=== PATIENT | female | born 1975 | race Caucasian/White ===

== ENCOUNTER → 2016-08-08 | Outpatient (CLI) | payer BC ==
--- NOTE | 2016-08-08 14:28 | REP ---
CERVICAL SPINE SERIES: Eight views. HISTORY: Neck pain. FINDINGS: Lateral views done in flexion/extension and neutral position show preserved vertebral body heights and normal alignment. Disc spaces are maintained. No subluxation or instability is seen. Prevertebral soft tissues are unremarkable. Oblique images demonstrate intact neural foramina bilaterally at each cervical level and normally aligned facets. AP view shows a mild levoconvex curvature, which may reflect spasm. Open mouth odontoid view is unremarkable. IMPRESSION: No bony abnormality is seen. A levoconvex curvature may reflect spasm. Signed by Dax Dominguez MD 08/08/2016 03:06 P
== END ==
LOC: M LRY 13:40
PROVIDERS: ATTEND Nurse Practitioner Family
DX: M54.2 Cervicalgia (principal); R93.7 Abnormal findings on diagnostic imaging of other parts of musculoskeletal system

== ENCOUNTER → 2017-08-21 | Outpatient (REF) | payer BC | LOC: M SFHCLERA 17:54 | DX: R53.81 Other malaise (principal) ==

== ENCOUNTER → 2018-12-24 | Outpatient (REF) | payer BC | LOC: M SFHCLERA 19:57 | PROVIDERS: ATTEND Physician Assistant | DX: J02.9 Acute pharyngitis, unspecified (principal) ==

== ENCOUNTER → 2019-10-19 | Outpatient (REF) | payer BC | LOC: M SFHCWAGY 13:18 | PROVIDERS: ATTEND Nurse Practitioner Women's Health | DX: Z12.4 Encounter for screening for malignant neoplasm of cervix (principal) ==

== ENCOUNTER → 2019-10-29 | Outpatient (CLI) | payer BC ==
--- NOTE | 2019-10-29 16:21 | REP ---
REASON: Metrorrhagia. COMPARISON: Multiple, the latest 01/29/2016, which was normal. Transvesical and transvaginal imaging was obtained. The uterus measures 8.9 x 4.7 x 5.3 cm. The uterine parenchymal echopattern is within normal limits, with the exception of a small 1.4 x 1.2 x 1.3 cm sized mixed echo structure, possibly representing early myomatous change. The endometrial echocomplex is within normal limits for the patient's age, measuring 1.2 cm. Right ovary measures 3.5 x 2 x 3.6 cm and is within normal limits. Left ovary measures 3.4 x 2.1 x 1.8 cm and is within normal limits. There is no free fluid in the cul-de-sac. IMPRESSION: Possible early uterine myomatous changes.
== END ==
LOC: M WHC 09:04
PROVIDERS: ATTEND Nurse Practitioner Women's Health
DX: R10.2 Pelvic and perineal pain (principal); N92.1 Excessive and frequent menstruation with irregular cycle

== ENCOUNTER → 2019-11-12 | Outpatient (CLI) | payer BC ==
--- NOTE | 2019-11-12 08:49 | REPMRS ---
Patient History The patient states she has not had a clinical breast exam in over a year. No known family history of cancer. Digital Woman Screen Mammo: November 12, 2019 - Exam #: [id number] Bilateral CC and MLO view(s) were taken. Technologist: Breonna Thorne, Technologist No prior studies available for comparison. FINDINGS: There are scattered fibroglandular densities. The Volpara volumetric breast density category is: B. There is no evidence of dominant mass, architectural distortion, or grouped microcalcification typical of malignancy. 3-D tomosynthesis shows no additional findings. Assessment: BI-RADS/ACR category 1 mammogram. Negative Mammogram. Recommendation Routine screening mammogram of both breasts in 1 year (for women over age 40). This patient's Lifetime Breast Cancer RIsk is estimated at 9.4 %. This mammogram was interpreted with the aid of an FDA-approved computer-aided dectection system. Electronically Signed By: Nicolas Dominguez MD 11/12/19 0867
== END ==
LOC: M WHC 08:05
PROVIDERS: ATTEND Nurse Practitioner Women's Health
DX: Z12.31 Encounter for screening mammogram for malignant neoplasm of breast (principal)

== ENCOUNTER → 2020-08-09 | Outpatient (REF) | payer BC ==
[2020-08-09 17:14] LABS: BASO % 0.3 % (0.0-1.0); EOS # 0.4 10^3/uL (0.0-0.5); EOS % 4.7 % (0.0-3.0); HEMATOCRIT 41.5 % (36.0-47.0); HEMOGLOBIN 13.3 g/dl (12.0-15.5); LYMPH # 2.2 10^3/uL (1.5-5.0); LYMPH % 29.1 % (24.0-44.0); MEAN CORPUSCULAR HEMOGLOBIN 32.9 pg (27.0-33.0); MEAN CORPUSCULAR VOLUME 102.7 fl (80.0-96.0); MONO # 0.5 10^3/uL (0.0-0.8); MONO % 6.9 % (0.0-5.0); NEUTROPHILS # 4.4 10^3/uL (1.5-8.5); NEUTROPHILS % 58.6 % (36.0-66.0); PLATELET COUNT, AUTOMATED 195 10^3/uL (150-450); RED BLOOD COUNT 4.04 10^6/uL (4.00-5.40); WHITE BLOOD COUNT 7.5 10^3/uL (4.0-10.0)
[2020-08-09 17:30] LABS: ALT/SGPT 24 U/L (12-78); BILIRUBIN,TOTAL 0.2 MG/DL (0.2-1.0); BLOOD UREA NITROGEN 16 MG/DL (7-18); CALCIUM LEVEL 9.4 MG/DL (8.5-10.1); CARBON DIOXIDE LEVEL 28 MEQ/L (21-32); CHLORIDE LEVEL 106 MEQ/L (98-107); FREE T4 1.06 NG/DL (0.76-1.46); GLOMERULAR FILTRATION RATE > 60.0 (>58); GLUCOSE, FASTING 88 MG/DL (70-100); POTASSIUM SERUM 4.3 MEQ/L (3.5-5.1); SODIUM LEVEL 140 MEQ/L (136-145); THYROID STIMULATING HORMONE 0.741 uIU/ML (0.358-3.740); TOTAL PROTEIN 6.4 GM/DL (6.4-8.2)
[2020-08-09 18:26] LABS: TOTAL 25(OH) VITAMIN D 19.3 NG/ML (30.0-100.0)
== END ==
LOC: M SFHCPLAZ 15:20
PROVIDERS: ATTEND Nurse Practitioner Family
DX: R59.0 Localized enlarged lymph nodes (principal); F41.9 Anxiety disorder, unspecified

== ENCOUNTER 2020-10-23 06:51 | Emergency (ER) | payer BC ==
[~2020-10-23] VITALS: Ht 167.6 cm; Wt 86.9 kg
[2020-10-23] MEDS ORDERED: LEXA1TAB (07:06)
[2020-10-23] MEDS ORDERED: VITA50005 (07:06)
[2020-10-23 07:51] LABS: BASO # 0.1 10^3/uL (0.0-0.2); BASO % 0.4 % (0.0-1.0); EOS # 0.4 10^3/uL (0.0-0.5); EOS % 3.4 % (0.0-3.0); HEMATOCRIT 46.5 % (36.0-47.0); HEMOGLOBIN 15.1 g/dl (12.0-15.5); LYMPH # 1.6 10^3/uL (1.5-5.0); LYMPH % 13.4 % (24.0-44.0); MEAN CORPUSCULAR HEMOGLOBIN 33.2 pg (27.0-33.0); MEAN CORPUSCULAR HGB CONC 32.5 g/dl (32.0-36.5); MEAN CORPUSCULAR VOLUME 102.2 fl (80.0-96.0); MONO # 0.8 10^3/uL (0.0-0.8); MONO % 6.7 % (2.0-8.0); NEUTROPHILS % 75.6 % (36.0-66.0); PLATELET COUNT, AUTOMATED 191 10^3/uL (150-450); RED BLOOD COUNT 4.55 10^6/uL (4.00-5.40); WHITE BLOOD COUNT 11.9 10^3/uL (4.0-10.0)
[2020-10-23 08:21] LABS: HCG, SERUM QUALITATIVE NEGATIVE (NEGATIVE)
[2020-10-23 08:31] LABS: BLOOD UREA NITROGEN 18 MG/DL (7-18); CALCIUM LEVEL 9.2 MG/DL (8.5-10.1); CARBON DIOXIDE LEVEL 25 MEQ/L (21-32); CHLORIDE LEVEL 109 MEQ/L (98-107); CK-MB VALUE MASS 1.1 NG/ML (<3.6); CPK CREATINE PHOSPHOKINASE 79 U/L (26-192); CREATININE FOR GFR 0.87 MG/DL (0.55-1.30); GLOMERULAR FILTRATION RATE > 60.0 (>58); GLUCOSE, FASTING 82 MG/DL (70-100); MB/CK RELATIVE INDEX 1.39 (< OR =4); POTASSIUM SERUM 4.2 MEQ/L (3.5-5.1); SODIUM LEVEL 141 MEQ/L (136-145); TROPONIN I < 0.02 NG/ML (< 0.10)
--- NOTE | 2020-10-23 08:43 | REP ---
INDICATION: near-syncope. COMPARISON: None. TECHNIQUE: Axial CT images with multiplanar reformations. FINDINGS: No acute bleed or acute large vessel territorial infarct. Ventricles, cisterns and sulci are within normal limits. No mass effect or midline shift. No abnormal fluid collections. Paranasal sinuses and mastoid air cells are clear IMPRESSION: No acute findings. <Electronically signed by Galindo Schmidt > 10/23/20 [id number]
--- NOTE | 2020-10-23 09:39 | ECGEPIP ---
[facility] - ED Test Date: 2020-10-23 Pat Name: ADRIANO BYRNE Department: Room: - Gender: Female Machine Riveter: thomas : 1975 Requested By: Renan Zhang Order Number: [id number] Reading MD: Eric Velazquez Measurements Intervals [place] Rate: 71 P: 30 [place]: 128 QRS: 16 QRSD: 84 T: 21 QT: 402 QTc: 436 Interpretive Statements Normal sinus rhythm Baseline artifact Leads III/aVF isoelectric, uninterpretable Comparison tracing not on file Electronically Signed on 10-23-2020 9:38:51 EDT by Eric Velazquez
[2020-10-23 12:19] LABS: CPK CREATINE PHOSPHOKINASE 71 U/L (26-192); MB/CK RELATIVE INDEX 1.41 (< OR =4); TROPONIN I < 0.02 NG/ML (< 0.10)
[2020-10-23 13:47] VITALS: BP 121/88
--- NOTE | 2020-10-23 15:30 | ECGEPIP ---
[facility] - ED Test Date: 2020-10-23 Pat Name: ADRIANO BYRNE Department: Room: - Gender: Female Special Education Educational Assistant: FLOWER : 1975 Requested By: Renan Zhang Order Number: [id number] Reading MD: Eric Velazquez Measurements Intervals [place] Rate: 71 P: 20 [place]: 134 QRS: 36 QRSD: 74 T: 22 QT: 422 QTc: 458 Interpretive Statements Sinus rhythm with premature ventricular complexes ectopy new from tracing done 719 on same date baseline artifact Electronically Signed on 10-23-2020 15:30:29 EDT by Eric Velazquez
== END 2020-10-23 13:50 | disposition home or self-care (01) ==
LOC: M ED 06:51
DX: R55 Syncope and collapse (principal); F32.9 Major depressive disorder, single episode, unspecified; F41.9 Anxiety disorder, unspecified; K21.9 Gastro-esophageal reflux disease without esophagitis; F17.200 Nicotine dependence, unspecified, uncomplicated

== ENCOUNTER → 2021-02-20 | Outpatient (CLI) | payer BC ==
[~2021-02-20] MED LIST: ERGO500029; LEXA1TAB
== END ==
LOC: M PLALAB 14:17
PROVIDERS: ATTEND Nurse Practitioner Family
DX: E55.9 Vitamin D deficiency, unspecified (principal)

== ENCOUNTER → 2021-04-09 | Outpatient (REF) | LOC: M EMP 12:43 | PROVIDERS: ATTEND Family Medicine | DX: Z20.822 Contact with and (suspected) exposure to COVID-19 (principal) ==

== ENCOUNTER → 2021-04-11 | Outpatient (REF) ==
[2021-04-11 10:36] LABS: RSV AMPLIFICATION NEGATIVE (NEGATIVE)
== END ==
LOC: M EMP 09:32
PROVIDERS: ATTEND Family Medicine
DX: Z11.52 Encounter for screening for COVID-19 (principal)

== ENCOUNTER → 2021-04-23 | Outpatient (CLI) | payer BC ==
[2021-04-24 17:09] LABS: Lyme Disease IgG/IgM Antibodie <0.91 ISR (0.00-0.90); Lyme Disease IgM Ab Quantitati <0.80 index (0.00-0.79)
== END ==
LOC: M PLALAB 07:59
PROVIDERS: ATTEND Nurse Practitioner Family
DX: E55.9 Vitamin D deficiency, unspecified (principal); S20.461D Insect bite (nonvenomous) of right back wall of thorax, subsequent encounter; W57.XXXD Bitten or stung by nonvenomous insect and other nonvenomous arthropods, subsequent encounter; Y92.9 Unspecified place or not applicable; Y99.9 Unspecified external cause status; Y93.9 Activity, unspecified

== ENCOUNTER → 2022-05-09 | Outpatient (CLI) | payer BC ==
[2022-05-09 18:34] LABS: ALBUMIN 3.7 GM/DL (3.2-5.2); ALT/SGPT 20 U/L (12-78); BILIRUBIN,TOTAL 0.3 MG/DL (0.2-1.0); BLOOD UREA NITROGEN 8 MG/DL (7-18); CALCIUM LEVEL 8.6 MG/DL (8.5-10.1); CARBON DIOXIDE LEVEL 25 MEQ/L (21-32); CHLORIDE LEVEL 108 MEQ/L (98-107); CREATININE FOR GFR 0.77 MG/DL (0.55-1.30); GLOMERULAR FILTRATION RATE > 60.0 (>58); GLUCOSE, FASTING 74 MG/DL (70-100); POTASSIUM SERUM 4.3 MEQ/L (3.5-5.1); SODIUM LEVEL 140 MEQ/L (136-145); TOTAL PROTEIN 6.3 GM/DL (6.4-8.2)
[2022-05-09 19:46] LABS: TOTAL 25(OH) VITAMIN D 28.5 NG/ML (30.0-100.0)
== END ==
LOC: M PLALAB 15:04
PROVIDERS: ATTEND Nurse Practitioner Adult Health
DX: F17.210 Nicotine dependence, cigarettes, uncomplicated (principal); E55.9 Vitamin D deficiency, unspecified; Z13.29 Encounter for screening for other suspected endocrine disorder; S20.461D Insect bite (nonvenomous) of right back wall of thorax, subsequent encounter

== ENCOUNTER → 2022-08-11 | Outpatient (REF) | LOC: M LABSMTC 11:22 | PROVIDERS: ATTEND Family Medicine | DX: Z11.52 Encounter for screening for COVID-19 (principal) ==

== ENCOUNTER → 2022-09-23 | Outpatient (REF) | payer BC | LOC: M LAB REF 18:53 | PROVIDERS: ATTEND Student in an Organized Health Care Education/Training Program | DX: J02.9 Acute pharyngitis, unspecified (principal) ==

== ENCOUNTER → 2022-11-25 | Outpatient (REF) | LOC: M EMP 14:31 | PROVIDERS: ATTEND Family Medicine | DX: Z20.828 Contact with and (suspected) exposure to other viral communicable diseases (principal) ==

== ENCOUNTER → 2022-11-27 | Outpatient (REF) | LOC: M EMP 08:34 | PROVIDERS: ATTEND Family Medicine | DX: Z20.828 Contact with and (suspected) exposure to other viral communicable diseases (principal) ==

== ENCOUNTER → 2023-04-14 | Outpatient (CLI) | payer BC ==
[2023-04-14 13:35] LABS: HEMATOCRIT 43.9 % (36.0-47.0); HEMOGLOBIN 14.6 g/dl (12.0-15.5); MEAN CORPUSCULAR HGB CONC 33.3 g/dl (32.0-36.5); MEAN CORPUSCULAR VOLUME 99.1 fl (80.0-96.0); PLATELET COUNT, AUTOMATED 233 10^3/uL (150-450); RED BLOOD COUNT 4.43 10^6/uL (4.00-5.40); WHITE BLOOD COUNT 8.3 10^3/uL (4.0-10.0)
[2023-04-14 13:56] LABS: FERRITIN 9.2 NG/ML (7.3-270.7); THYROID STIMULATING HORMONE 1.284 uIU/ML (0.55-4.78); TOTAL 25(OH) VITAMIN D 25.7 NG/ML (20.0-100.0)
[2023-04-14 14:04] LABS: ALBUMIN 3.7 G/DL (3.2-5.2); ALKALINE PHOSPHATASE 83 U/L (46-116); ALT/SGPT 20 U/L (7.0-40); AST/SGOT 14 U/L (<34); BILIRUBIN,TOTAL 0.3 MG/DL (0.3-1.2); BLOOD UREA NITROGEN 12 MG/DL (9-23); CALCIUM LEVEL 9.2 MG/DL (8.5-10.1); CARBON DIOXIDE LEVEL 24 MMOL/L (20-31); CHLORIDE LEVEL 110 MMOL/L (98-107); CHOLESTEROL LEVEL 199 MG/DL (<200); CHOLESTEROL RISK RATIO 4.14 (<5); CREATININE FOR GFR 0.77 MG/DL (0.55-1.30); GLOMERULAR FILTRATION RATE > 60.0 (>58); GLUCOSE, FASTING 75 MG/DL (60-100); POTASSIUM SERUM 4.7 MMOL/L (3.5-5.1); SODIUM LEVEL 139 MMOL/L (136-145); TOTAL PROTEIN 6.3 G/DL (5.7-8.2); TRIGLYCERIDES LEVEL 125 MG/DL (<150)
== END ==
LOC: M PLALAB 09:52
PROVIDERS: ATTEND Nurse Practitioner Adult Health
DX: Z00.00 Encounter for general adult medical examination without abnormal findings (principal); E55.9 Vitamin D deficiency, unspecified; Z13.220 Encounter for screening for lipoid disorders; N92.6 Irregular menstruation, unspecified

== ENCOUNTER → 2023-08-20 | Outpatient (CLI) | payer BC | LOC: M WHC 13:06 | PROVIDERS: ATTEND Nurse Practitioner Family | DX: Z12.31 Encounter for screening mammogram for malignant neoplasm of breast (principal); R92.323 Mammographic fibroglandular density, bilateral breasts ==

== ENCOUNTER → 2023-08-20 | Outpatient (REF) | payer BC | LOC: M SFHCWAGY 10:25 | PROVIDERS: ATTEND Nurse Practitioner Family | DX: Z12.4 Encounter for screening for malignant neoplasm of cervix (principal) | CPT/HCPCS: 87624; G0123 ==

== ENCOUNTER → 2023-09-17 | Outpatient (REF) | LOC: M EMP 09:09 | PROVIDERS: ATTEND Family Medicine | DX: Z11.52 Encounter for screening for COVID-19 (principal) ==

== ENCOUNTER → 2023-11-24 | Outpatient (REF) | LOC: M EMP 09:02 | PROVIDERS: ATTEND Family Medicine | DX: Z20.828 Contact with and (suspected) exposure to other viral communicable diseases (principal) ==

== ENCOUNTER → 2023-11-24 | Outpatient (REF) | LOC: M EMP 11:16 | PROVIDERS: ATTEND Family Medicine | DX: Z20.822 Contact with and (suspected) exposure to COVID-19 (principal) ==

== ENCOUNTER 2023-12-01 11:14 | Emergency (ER) | payer BC ==
[~2023-12-01] VITALS: Ht 167.6 cm; Wt 94.3 kg
[2023-12-01] MEDS ORDERED: BUPR-365 PO (11:21)
[2023-12-01] MEDS: predniSONE 20 MG TAB PO ONE (12:24)
[2023-12-01] MEDS ORDERED: VENTAER INH (12:30)
[2023-12-01] MEDS ORDERED: PRED10TA2 PO (12:30)
[2023-12-01] MEDS: ALBUTEROL 90 MCG/ACT 8GM HFA INHALER INH ONE (12:30)
[2023-12-01 12:39] VITALS: BP 138/81; TEMP 97.5; O2SAT 98
== END 2023-12-01 12:43 | disposition home or self-care (01) ==
LOC: M ED 11:14
DX: J20.6 Acute bronchitis due to rhinovirus (principal); F32.9 Major depressive disorder, single episode, unspecified; F17.200 Nicotine dependence, unspecified, uncomplicated; Z79.52 Long term (current) use of systemic steroids; Z79.899 Other long term (current) drug therapy
CPT/HCPCS: 71046; 87486; 87581; 87633; 87798; 94640; 94664; 99284; J7512

== ENCOUNTER → 2023-12-31 | Outpatient (CLI) | payer BC ==
[~2023-12-31] MED LIST changes: +BUPR-365 PO; +PRED10TA2 PO; +VENTAER INH
[2023-12-31 15:42] LABS: HEMOGLOBIN 14.5 g/dl (12.0-15.5); MEAN CORPUSCULAR HEMOGLOBIN 32.4 pg (27.0-33.0); MEAN CORPUSCULAR VOLUME 98.4 fl (80.0-96.0); PLATELET COUNT, AUTOMATED 242 10^3/uL (150-450); RED BLOOD COUNT 4.47 10^6/uL (4.00-5.40); WHITE BLOOD COUNT 8.9 10^3/uL (4.0-10.0)
[2023-12-31 16:00] LABS: PERCENT SATURATION 9.2 % (13.2-45.0)
[2023-12-31 16:02] LABS: FERRITIN 11.8 NG/ML (7.3-270.7)
== END ==
LOC: M PLALAB 14:01
PROVIDERS: ATTEND Nurse Practitioner Adult Health
DX: D50.9 Iron deficiency anemia, unspecified (principal)

== ENCOUNTER 2024-01-16 10:37 | Outpatient (CLI) | payer BC ==
[~2024-01-16] VITALS: Ht 167.6 cm; Wt 95.7 kg
[~2024-01-16 10:37] MED LIST changes: +ALBUTEROL SULFATE 2.5MG/0.5ML INH NEB SOLN INH PRN; +EPINEPHrine INJ 1 MG/ML 1ML AMP IM PRN; +diphenhydrAMINE 50MG/ML VIAL IV PRN; +methylPREDNISolone 125MG 2ML VIAL IV PRN
[2024-01-16 11:00] VITALS: BP 126/77; O2SAT 100
[2024-01-16] MEDS ORDERED: NS 1,000 ML IV SCH (11:00)
[2024-01-16] MEDS: IRON SUCROSE 200 MG in NS 100 ML OVER 1 HR IV ONE (11:22)
[2024-01-16 12:26] VITALS: BP 122/73; O2SAT 96
== END 2024-01-16 12:40 ==
LOC: M INFU 10:37
PROVIDERS: ATTEND Nurse Practitioner Adult Health
DX: D50.9 Iron deficiency anemia, unspecified (principal); N92.0 Excessive and frequent menstruation with regular cycle
CPT/HCPCS: 96365; J1756

== ENCOUNTER → 2024-03-04 | Outpatient (CLI) | payer BC ==
[~2024-03-04] MED LIST changes: -ALBUTEROL SULFATE 2.5MG/0.5ML INH NEB SOLN INH PRN; -EPINEPHrine INJ 1 MG/ML 1ML AMP IM PRN; -diphenhydrAMINE 50MG/ML VIAL IV PRN; -methylPREDNISolone 125MG 2ML VIAL IV PRN
== END ==
LOC: M WHC 09:04
PROVIDERS: ATTEND Nurse Practitioner Family
DX: R10.2 Pelvic and perineal pain (principal); N88.8 Other specified noninflammatory disorders of cervix uteri; N83.201 Unspecified ovarian cyst, right side; N83.202 Unspecified ovarian cyst, left side; D25.1 Intramural leiomyoma of uterus

== ENCOUNTER 2024-06-08 10:05 | Day surgery (SDC) | payer BC ==
[~2024-06-08] VITALS: Ht 167.6 cm; Wt 97.0 kg
[~2024-06-08 10:05] MED LIST changes: +BIOT1CAP2 PO; +BUPR-597 PO; +FERR325T81 PO; +GLYCOPYRROLATE INJ 0.2 MG/ML 2 ML VIAL As Ordered ONE; +LEXA1TAB2 PO; +LIDOCAINE 2% 100MG/5ML SDV (FOR ANES.) As Ordered ONE; +MIDAZOLAM INJ 2MG/2ML VIAL As Ordered ONE; +ONDANSETRON 4MG 2ML VIAL As Ordered ONE; +fentaNYL 100 MCG/2 ML INJECTION As Ordered ONE; +propofoL 200 MG/20 ML VIAL As Ordered ONE
[2024-06-08] MEDS ORDERED: NS 1,000 ML IV SCH ×2 (10:40→13:25)
[2024-06-08 11:03] LABS: HEMATOCRIT 44.5 % (36.0-47.0); HEMOGLOBIN 14.5 g/dl (12.0-15.5); MEAN CORPUSCULAR HEMOGLOBIN 32.8 pg (27.0-33.0); MEAN CORPUSCULAR HGB CONC 32.6 g/dl (32.0-36.5); MEAN CORPUSCULAR VOLUME 100.7 fl (80.0-96.0); PLATELET COUNT, AUTOMATED 230 10^3/uL (150-450); RED BLOOD COUNT 4.42 10^6/uL (4.00-5.40); WHITE BLOOD COUNT 10.5 10^3/uL (4.0-10.0)
[2024-06-08] MEDS ORDERED: fentaNYL 100 MCG/2 ML INJECTION IV PRN (13:25)
[2024-06-08] MEDS ORDERED: HYDROMORPHONE HCL 0.5 MG/ 0.5 ML SYRINGE IV PRN (13:25)
[2024-06-08] MEDS ORDERED: ONDANSETRON 4MG 2ML VIAL IV PRN (13:25)
[2024-06-08] MEDS ORDERED: oxyCODONE 5MG TAB PO PRN (13:25)
[2024-06-08 14:17] VITALS: BP 138/82; TEMP 97; O2SAT 97
== END 2024-06-08 14:19 | disposition home or self-care (01) ==
LOC: M SDC 10:05
PROVIDERS: ATTEND Specialist
DX: N84.0 Polyp of corpus uteri (principal); N92.0 Excessive and frequent menstruation with regular cycle; K21.9 Gastro-esophageal reflux disease without esophagitis; F41.9 Anxiety disorder, unspecified; Z79.899 Other long term (current) drug therapy; F17.210 Nicotine dependence, cigarettes, uncomplicated
CPT/HCPCS: 36415; 58558; 81025; 85027; 88305; J1100; J1596; J2250; J2405; J3010

== ENCOUNTER → 2024-08-11 | Outpatient (REF) ==
[~2024-08-11] MED LIST changes: -GLYCOPYRROLATE INJ 0.2 MG/ML 2 ML VIAL As Ordered ONE; -LIDOCAINE 2% 100MG/5ML SDV (FOR ANES.) As Ordered ONE; -MIDAZOLAM INJ 2MG/2ML VIAL As Ordered ONE; -ONDANSETRON 4MG 2ML VIAL As Ordered ONE; -fentaNYL 100 MCG/2 ML INJECTION As Ordered ONE; -propofoL 200 MG/20 ML VIAL As Ordered ONE
== END ==
LOC: M EMP 08:35
PROVIDERS: ATTEND Family Medicine
DX: Z11.52 Encounter for screening for COVID-19 (principal)

== ENCOUNTER → 2024-08-24 | Outpatient (CLI) | payer BC | LOC: M WHC 13:02 | PROVIDERS: ATTEND Nurse Practitioner Adult Health | DX: R22.1 Localized swelling, mass and lump, neck (principal) ==

== ENCOUNTER → 2025-01-06 | Outpatient (CLI) | payer BC ==
[~2025-01-06] MED LIST changes: -BUPR-597 PO; +BUPR-766 PO
[2025-01-06 08:27] LABS: PLATELET COUNT, AUTOMATED 174 10^3/uL (150-450)
[2025-01-06 08:53] LABS: IRON (FE) 68.0 UG/DL (50-170); PERCENT SATURATION 20.0 % (13.2-45.0)
[2025-01-06 08:54] LABS: ALT/SGPT 12.0 U/L (7.0-40); AST/SGOT 16.0 U/L (<34); CALCIUM LEVEL 8.8 MG/DL (8.5-10.1); CARBON DIOXIDE LEVEL 25.0 MMOL/L (20-31); CHLORIDE LEVEL 108.0 MMOL/L (98-107); CHOLESTEROL LEVEL 188.0 MG/DL (<200); CHOLESTEROL RISK RATIO 3.67 (<5); CREATININE FOR GFR 0.85 MG/DL (0.55-1.30); GLOMERULAR FILTRATION RATE 85.0 (>58); LDL CHOLESTEROL 115.0 MG/DL (<100); NON-HDL-C 136.8 MG/DL; POTASSIUM SERUM 4.3 MMOL/L (3.5-5.1); SODIUM LEVEL 142.0 MMOL/L (136-145); TRIGLYCERIDES LEVEL 109.0 MG/DL (<150)
[2025-01-06 08:55] LABS: TOTAL 25(OH) VITAMIN D 35.1 NG/ML (20.0-100.0)
[2025-01-06 08:56] LABS: FREE T4 1.06 NG/DL (0.89-1.76)
== END ==
LOC: M LAB 07:44
PROVIDERS: ATTEND Nurse Practitioner Adult Health
DX: Z00.00 Encounter for general adult medical examination without abnormal findings (principal); D50.9 Iron deficiency anemia, unspecified; F41.9 Anxiety disorder, unspecified; E55.9 Vitamin D deficiency, unspecified; Z13.220 Encounter for screening for lipoid disorders